=== PATIENT | female | born 1940 | race Caucasian/White ===

== ENCOUNTER → 2016-12-01 | Outpatient (CLI) | payer OTHER ==
[~2016-12-01] MED LIST: ALLEGRA ALLERG180 MG PO; AMLODIPINE; AMLODIPINE BESYL5 MG PO; ANTIDEPRESSANT; ASPIRIN81 M2 PO; BACLOFEN 10MG T10 MG PO; BYSTOLIC; BYSTOLIC 5 MG5 M1 PO; CELEXA 20 MG TA20 MG PO; CRESTOR; CRESTOR20 MG PO; CYCLOBENZAPRINE5 MG PO; FENOFIBRATE134 MG PO; HYDROCHLOROTHIA25 M2 PO; HYDROCHLOROTHIAZIDE; HYDROCODONE-AP1 EAC6 PO; LYRICA 50 MG50 MG PO; MOBIC7.5 MG PO; NEURONTIN 300300 M1 PO; NORCO 5-325 TA1 EACH PO; OSELB75 PO; TESSALON PERLE100 MG PO; TRAMADOL 50 MG50 MG PO; TRAZODONE HCL50 MG PO; TRILIPIX; VITAMIN D400 UNIT PO; ZOFRAN ODT4 MG PO; ZYRTEC10 M2 PO
== END ==
LOC: RAD 02:00
DX: Z12.31 Encounter for screening mammogram for malignant neoplasm of breast (principal)

== ENCOUNTER → 2018-07-24 | Outpatient (CLI) | payer OTHER ==
[~2018-07-24] VITALS: Ht 157.5 cm; Wt 84.8 kg
[~2018-07-24] MED LIST changes: +CELEXA20 MG PO; +LOSARTAN-HCTZ1 EAC1 PO; +TYLENOL EXTRA500 MG PO
--- NOTE | ~2018-07-24 | HPC ---
[facility] [place] [address] PAIN MANAGEMENT CONSULTATION Name: SHADI SIMMONS Room #: REG [facility].#: [id number] Admission: 07/24/18 Attend Phys: David Lyons DO Discharge: Date of : 44 Report #: [id number] THIS REPORT FOR: //name// CC: RADHA Lyons Physician staff EVELYN SUÁREZ DATE OF SERVICE: 07/24/2018 REFERRING PHYSICIAN: Evelyn Suárez, nurse practitioner. CHIEF COMPLAINT: Low back pain, bilateral lower extremity pain and paresthesias. HISTORY OF PRESENT ILLNESS: As you know, the patient is a 78-year-old female returning in followup visit with continued low back pain, bilateral lower extremity pain, left greater than right. She is placing pain score today at 8/10. She states pain is exacerbated with activity such as walking, standing for long periods of time and climbing stairs, improves with rest, relaxation and previous epidural injection. She indicates the previous epidural injection provided excellent improvement in symptoms. She returns today in followup visit per the request of Dr. Silvestre and his team to undergo epidural injection under fluoroscopic guidance in hopes of improving her recurrent pain that began in 12/2017 and progressively worsened. She indicates today her pain is continuous, describes the pain as shooting and cramping, places current pain score at 8/10, daily average at 6-10/10, worst pain has been 10/10. The patient has been referred to our clinic by her neurosurgeon to trial epidural injections under fluoroscopic guidance. PAST MEDICAL HISTORY: 1. Hypertension. 2. Coronary artery disease. 3. History of skin cancers. 4. Chronic axial back pain. 5. Seasonal allergies. 6. Dyslipidemia. PAST SURGICAL HISTORY: 1. section. 2. Percutaneous cardiac stenting in 2005, 2007, a total of 9 stents. 3. Cholecystectomy. 4. Lumbar spine surgery with fusion. [facility] [address] [place] [address] PAIN MANAGEMENT CONSULTATION Name: SHADI SIMMONS Rex Room #: REG [facility].#: [id number] Admission: 07/24/18 Attend Phys: David Lyons DO Discharge: Date of : 44 Report #: [id number] SOCIAL HISTORY: The patient denies tobacco, alcohol, IV or illicit drug use. She is retired, retired from sales and marketing. She retired on 06/12/2018. She is not receiving workmen's compensation, nor is trying to obtain disability benefits. She is not in litigation in regards to pain. She is unaccompanied today. REVIEW OF SYSTEMS: Positive for fatigue and weakness, wearing corrective eyewear, cataracts, nosebleeds, shortness of breath walking and lying flat, heart trouble, chest pain, palpitations, frequent urination, nocturia, incontinence, dribbling of urine, numbness and tingling sensations in the lower extremities bilaterally, bleeding and bruising tendencies, chronic back pain, and hypertension along with dyslipidemia. All other review of systems negative per 12-point review of systems other than those listed in history of present illness. Pain impact score 51/70, indicating severe interference of daily activities secondary to pain. ALLERGIES: CODEINE. CURRENT MEDICATIONS: Losartan/hydrochlorothiazide 100/25 once a day, Bystolic 5 mg once a day, citalopram 20 mg per day, Tylenol ES 500 mg 3 times a day, cholecalciferol 400 units once a day, aspirin 81 mg per day, trazodone 50 mg p.o. at bedtime, atorvastatin 20 mg per day. IMAGING: MRI lumbar spine obtained on 07/15/2018 shows postsurgical changes at L4-L5 and L5-S1, thin-walled fluid collection at the postoperative site posterior to the L5 vertebral body. Grade 1 anterolisthesis L4-L5 and L5-S1, degenerative changes most pronounced at the L3-L4 level, moderately large central disk protrusion extrusion with migration of disk material superiorly and spinal stenosis at the L3-L4 level. There is mild disk bulging at L2-L3, L4-L5 and L5-S1, bilateral renal cysts. PQRS: The patient has a history of osteoarthritis involving the back and the bilateral knees. No rheumatoid arthritis. She is placing pain intensity at 8/10. She is not a fall risk, has not had a fall in the last 3 months. She is not on blood thinners. She is treated for hypertension. She is not on opioids. She has a low opioid addiction potential. Pain impact score 51/70, severe interference of daily activities secondary to pain. PHYSICAL EXAMINATION: VITAL SIGNS: Blood pressure 140/79, pulse 71, respiratory rate 16 and unlabored. The patient is 98% on room air. Height 5 feet 2 inches tall, weight 187 pounds, BMI calculated 34.2. GENERAL: Well-developed, well-nourished, well-hydrated, exogenously obese 78-year-old female, appearing stated age. She is placing current pain score [facility] [address] [place] [address] PAIN MANAGEMENT CONSULTATION Name: SHADI SIMMONS Room #: KIERRA Rodriguez#: [id number] Admission: 07/24/18 Attend Phys: David Lyons DO Discharge: Date of : 44 Report #: [id number] 04/05. HEENT: Normocephalic, atraumatic. Pupils equal, round, reactive to light. Extraocular muscles are intact. Sclerae nonicteric without injection. NEUROLOGIC: Cranial nerves 2-12 grossly intact. Speech is fluent. The patient deemed a good historian. LUNGS: Clear, no wheeze, rhonchi or rales. CARDIOVASCULAR: Regular. No appreciable gallop, no rub. ABDOMEN: Soft, obese, normal active bowel sounds. EXTREMITIES: Show no clubbing, no cyanosis, no edema. MUSCULOSKELETAL: There is a well-healed surgical scar in the lower lumbar spine. There is paraspinal muscle tenderness to palpation. Seated straight leg raising negative. Supine straight leg raising positive, more right than left. Ankle clonus negative. Babinski is negative. Mild decrease in tactile sensation in the distal L4, L5, S1 distributions bilaterally, right greater than left. Muscle bulk and tone appears equal and symmetrical. Lumbar provocation testing is met with restriction of motion and increasing pain. ASSESSMENT: 1. Lumbar radiculopathy. 2. Spinal stenosis of lumbar spine. 3. Displacement of lumbar intervertebral disk with radiculopathy. 4. Lumbosacral spondylosis with radiculopathy. 5. Lumbar degeneration. 6. Chronic intractable pain. PLAN: 1. Based on today's physical exam and history the patient has provided, the description the patient uses in regards to pain as well as the location of symptoms, likely source of the patient's pain is lumbar radiculopathy. The patient has changes above her L4-L5 and L5-S1 fusion involving the L3-L4 level. There is a large central paracentral disk protrusion of the disk at this level along with degenerative changes consistent with arthritic findings at this L3-L4 level due to changes in mechanics. We have discussed with the patient the findings of her recent imaging study. She has been referred to our service by Neurosurgery to trial epidural injection and determine if her symptoms would be amenable to such procedures. There are plans for possible surgical intervention if more conservative options are ineffective. She has been referred to our clinic to trial a series of epidural injections and determine if her symptoms will improve. 2. The patient was advised risks and benefits of a lumbar epidural injection. These risks include but are not necessarily limited to bleeding, bruising, infection, worsening pain, no relief of pain, also risk of temporary or permanent muscle weakness, temporary or permanent nerve damage, possible paralysis and . The patient states understood and wished to proceed. [address] [address] PAIN MANAGEMENT CONSULTATION Name: SHADI SIMMONS Room #: REG CLI [facility].#: [id number] Admission: 07/24/18 Attend Phys: David Lyons DO Discharge: Date of : 44 Report #: [id number] 3. We made no changes in the patient's medication management at this time. Recommend the patient continue medical management as prior prescribed. 4. We will see the patient back in followup visit on 08/07/2018 for possible second in series of epidural injections. We will keep you apprised of her response to treatment. 5. We wish to thank the referring nurse practitioner, Evelyn Suárez and Dr. Seferino Silvestre for the opportunity to see this patient in consultation. We will keep you apprised of response to treatment as we address lumbar radicular symptoms. Again, we wish to thank you for the opportunity to see the patient in consultation. PROCEDURE NOTE DESCRIPTION OF PROCEDURE: L3-L4 Lumbar epidural steroid injection under fluoroscopic guidance. This is the first procedure of the first series that the patient is undergoing. After obtaining written consent, the patient was taken back to the fluoroscopy suite, placed in a prone position with pillow under the abdomen to decrease lumbar lordosis. The skin overlying the lumbosacral area was then prepped and draped in aseptic fashion. The L3-4 vertebral interspace was then identified by AP fluoroscopy. The skin and subcutaneous tissue overlying the target site of injection was anesthetized with 3 mL 1% lidocaine. A 20-gauge 3-1/2 inch Tuohy needle was then advanced under fluoroscopic guidance towards the epidural space using a left parasagittal approach. The epidural space was identified using loss of resistance to air technique. After negative aspiration for heme or cerebrospinal fluid, a total of 0.4 mL of Omnipaque was injected. A lumbar epidurogram was confirmed using both AP and lateral fluoroscopy. After negative aspiration for heme or cerebrospinal fluid, 5 mL of a solution containing 2 mL 14 mg/mL 80 mg total triamcinolone, 3 mL of lidocaine 1% was injected in increments. Contrast spread was noted postepidural space. The needle was then retracted approximately half way and needle tract flushed with 1 mL of 1% lidocaine. Needle was then removed. There were no apparent sensory or motor deficits in the lower extremity following the procedure. A sterile bandage was placed over the injection site. The heart rate, pulse, oximetry and blood pressure were continuously monitored after the procedure. There were no apparent complications. The patient tolerated the procedure well and was carefully escorted to the recovery room in [address] [address] PAIN MANAGEMENT CONSULTATION Name: SHADI SIMMONS Room #: REG [facility]#: [id number] Admission: 07/24/18 Attend Phys: David Lyons DO Discharge: Date of : 44 Report #: [id number] stable condition. There were no apparent complications. After meeting discharge criteria, the patient was then discharged home. <ELECTRONICALLY SIGNED> By: David Lyons DO 07/31/18 [id number] David Lyons DO /
[2018-07-24 10:50] VITALS: BP 148/79
== END | disposition home or self-care (01) ==
LOC: PAIN 07-17 14:26
DX: M51.16 Intervertebral disc disorders with radiculopathy, lumbar region (principal); M48.061 Spinal stenosis, lumbar region without neurogenic claudication; M47.27 Other spondylosis with radiculopathy, lumbosacral region; G89.29 Other chronic pain; I10 Essential (primary) hypertension; I25.10 Atherosclerotic heart disease of native coronary artery without angina pectoris; E78.5 Hyperlipidemia, unspecified; M43.16 Spondylolisthesis, lumbar region; M17.0 Bilateral primary osteoarthritis of knee; E66.9 Obesity, unspecified; Z85.828 Personal history of other malignant neoplasm of skin; Z90.49 Acquired absence of other specified parts of digestive tract; Z98.890 Other specified postprocedural states; Z98.1 Arthrodesis status; Z88.8 Allergy status to other drugs, medicaments and biological substances; Z79.899 Other long term (current) drug therapy; Z79.82 Long term (current) use of aspirin; Z68.34 Body mass index [BMI] 34.0-34.9, adult